=== PATIENT | female | born 1995 ===

== ENCOUNTER 2019-09-20 12:34 | Inpatient (IN) ==
[2019-09-20] MEDS ORDERED: MEPERIDINE 50 MG/1 ML VIAL IV PRN (12:50)
[2019-09-20] MEDS ORDERED: ONDANSETRON 4 MG/2 ML VIAL IV PRN (12:50)
[2019-09-20] MEDS: LACTATED RINGERS 1,000 ML IV SCH ×2 (13:00→23:02)
[2019-09-20 13:20] LABS: Basophils % 0.2 % (0.0-0.8); Eosinophils % 0.1 % (0.00-10.9); Hematocrit 32.1 VOL% (35.7-47.0); Hemoglobin 9.9 GM/DL (12.0-16.0); Immature Granulocytes % 0.6 %; Immature Granulocytes Absolute 0.06 #; Lymphocytes # 1.7 10*3/uL (1.4-4.0); Lymphocytes % 16.8 % (21.3-54.2); Mean Corpuscular HGB Conc 30.8 GM/DL (32-36); Mean Corpuscular Volume 81.1 FL (87-102); Mean Platelet Volume 12.4 FL (9.6-12.0); Neutrophils % 76.3 % (38.7-73.9); Platelet Count 179 T/CUMM (130-400); Red Blood Count 3.96 MC/CUMM (3.8-5.5); Red Cell Distribution Width 14.6 % (9.3-17.3)
[2019-09-20] MEDS: OXYTOCIN/LR 20 UNIT/1,000 ML BAG IV SCH (13:56)
[2019-09-20] MEDS: BUTORPHANOL 2 MG/ML VIAL IV PRN (23:44)
[2019-09-21] MEDS: BUTORPHANOL 2 MG/ML VIAL IV PRN ×3 (03:07→10:31)
[2019-09-21] MEDS: LACTATED RINGERS 1,000 ML IV SCH ×2 (05:19→13:08)
[2019-09-21] MEDS: OXYTOCIN/LR 20 UNIT/1,000 ML BAG IV SCH ×2 (06:05→13:14)
[2019-09-21] MEDS ORDERED: TRANEXAMIC ACID 1,000 MG/10 ML VIAL ONE (10:31)
[2019-09-21] MEDS ORDERED: OXYTOCIN/LR 20 UNIT/1,000 ML BAG IV ONE ×2 (10:31→11:14)
[2019-09-21] MEDS ORDERED: miSOPROStoL 200 MCG TABLET ONE (10:31)
[2019-09-21] MEDS ORDERED: METHYLERGONOVINE 0.2 MG/1 ML AMP ONE (10:31)
[2019-09-21] MEDS ORDERED: CARBOPROST TROMETHAMINE 250 MCG/ML AMP IM ONE (10:32)
[2019-09-21] MEDS ORDERED: SODIUM CHLORIDE 0.9% 0 ML IV ONE (10:33)
[2019-09-21] MEDS ORDERED: METHYLERGONOVINE 0.2 MG/1 ML AMP IM ONE (11:00)
[2019-09-21] MEDS ORDERED: LIDOCAINE 1% 50 ML VIAL ONE (11:06)
[2019-09-21] MEDS ORDERED: MEASLES/MUMPS/RUBELLA VACCINE 0.5 ML VIAL SUBCUT ONE (11:14)
[2019-09-21] MEDS ORDERED: oxyCODONE/ACETAMINOPHEN 5-325 MG TABLET PO PRN ×2 (11:14)
[2019-09-21] MEDS ORDERED: BENZOCAINE 20%/MENTHOL 0.5% SPRAY 56 GM CAN TOP PRN (11:14)
[2019-09-21] MEDS ORDERED: IBUPROFEN 800 MG TABLET PO PRN (11:14)
[2019-09-21] MEDS ORDERED: WITCH HAZEL PADS 100/JAR TOP PRN (11:14)
[2019-09-21] MEDS ORDERED: DIPH/TET/ACEL PERT BOOSTER VACCINE 0.5 ML VIAL IM ONE (11:14)
[2019-09-21] MEDS ORDERED: RHO(D) IMMUNE GLOBULIN 300 MCG SYRINGE IM ONE (11:14)
[2019-09-21] MEDS ORDERED: ONDANSETRON 4 MG/2 ML VIAL IV PRN (11:14)
[2019-09-21] MEDS ORDERED: LANOLIN 50% CREAM 0.3 OZ TUBE TOP PRN (11:14)
[2019-09-21] MEDS ORDERED: ACETAMINOPHEN 325 MG TABLET PO PRN (11:14)
[2019-09-21] MEDS ORDERED: BISACODYL 10 MG SUPP RECTAL PRN (11:14)
[2019-09-21] MEDS ORDERED: HYDROCORTISONE 2.5% RECTAL CREAM 30 GM TUBE TOP PRN (11:14)
[2019-09-21] MEDS: DOCUSATE SODIUM 100 MG CAPSULE PO SCH (20:23)
[2019-09-22 06:13] LABS: Basophils % 0.3 % (0.0-0.8); Eosinophils % 0.3 % (0.00-10.9); Hematocrit 23.2 VOL% (35.7-47.0); Immature Granulocytes % 0.8 %; Immature Granulocytes Absolute 0.09 #; Lymphocytes # 3.2 10*3/uL (1.4-4.0); Lymphocytes % 26.7 % (21.3-54.2); Mean Corpuscular HGB Conc 30.2 GM/DL (32-36); Mean Corpuscular Volume 81.1 FL (87-102); Mean Platelet Volume 12.8 FL (9.6-12.0); Monocytes % 6.4 % (1.7-12.7); Neutrophils % 65.5 % (38.7-73.9); Platelet Count 138 T/CUMM (130-400); Red Blood Count 2.86 MC/CUMM (3.8-5.5); Red Cell Distribution Width 14.7 % (9.3-17.3); White Blood Count 11.9 T/CUMM (4-12)
[2019-09-22] MEDS ORDERED: INFLUENZA VIRUS VACCINE 0.5 ML SYRINGE IM ONE (09:00)
[2019-09-22] MEDS: FERROUS SULFATE 325 MG TABLET PO SCH ×3 (10:07→20:39)
[2019-09-22] MEDS: DOCUSATE SODIUM 100 MG CAPSULE PO SCH ×2 (10:07→20:39)
[2019-09-23] MEDS: DOCUSATE SODIUM 100 MG CAPSULE PO SCH (09:33)
[2019-09-23] MEDS: FERROUS SULFATE 325 MG TABLET PO SCH (09:34)
[2019-09-23 19:33] VITALS: BP 113/61
== END 2019-09-23 11:37 | disposition home or self-care (01) | DRG 560 ==
LOC: N.LDOUT 12:34 → N.LD 12:35 → N.OB 09-21 15:10
PROVIDERS: ADMIT Obstetrics & Gynecology; ATTEND Obstetrics & Gynecology